=== PATIENT | female | born 1960 | race Asian ===

== ENCOUNTER 2023-02-16 22:17 | Emergency (ER) | payer MEDICAID ==
[~2023-02-16] VITALS: Ht 142.2 cm; Wt 63.5 kg
[2023-02-16 22:26] VITALS: BP_SYST 114; PULSE 74; RESP 20; TEMP 97.2; O2SAT 96
--- NOTE | 2023-02-16 22:26 | NUR ---
Patient to ER bed 07 to gown for evaluation. Side rails up. Report given to KAYLEY CRYSTAL.
--- NOTE | 2023-02-16 22:40 | NUR ---
Pt bib from home. c/o irritated R eye. Pt states to have been putting cover on car when she felt something in her eye. Pt states she used eye drops to irrigate eye but found no relief. Pt states to have been rubbing eye continously and does not know if she further irriated eye. Pt states she can see with R eye but has discomfort. Pt pain 8/10. Noted R eye tears, redness. No drainage noted. Pt AAOX4. VSS. Skin dry and intact. Pt speaking full complete sentences. Pt in bed with side rails up. at bedside.
--- NOTE | 2023-02-16 23:29 | NUR ---
MD ordered visual acuity test. pt denied stating she cannot keep her eye open and it hurts to open her eye. Pt educated on importance of visual acuity test. Pt denied test. MD and charge notifed
[2023-02-16] MEDS ORDERED: FLUORESCEIN SODIUM 1 MG OPHTHALMIC STRIP OP ONE (23:45)
[2023-02-16] MEDS ORDERED: PROPARACAINE (OPTHANINE 0.5%) 15 ML DROPS OP ONE (23:45)
[2023-02-16] MEDS ORDERED: BALANCED SALT IRRIG SOLN 15 ML IO ONE (23:45)
--- NOTE | 2023-02-17 00:01 | NUR ---
Patient transported to radiology via wheelchair, accompanied by ech.
[2023-02-17] MEDS ORDERED: OLOP5DRO24 LEFT EYE (00:30)
[2023-02-17] MEDS ORDERED: OFLO5DRO6 LEFT EYE (00:30)
[2023-02-17 00:45] VITALS: BP_SYST 116; PULSE 62; RESP 14; TEMP 98.3; O2SAT 100
--- NOTE | 2023-02-17 00:45 | NUR ---
Patient given written and verbal discharge instructions and verbalizes understanding. ER MD discussed with patient the results and treatment provided. Patient in stable condition. ID arm band removed. Rx of OFLOXACIN AND PATADAY given. Patient educated on pain management and to follow up with PMD. Pain Scale 0/10 Opportunity for questions provided and answered. Medication side effect fact sheet provided.
== END 2023-02-17 00:45 | disposition home or self-care (01) ==
LOC: SED 22:17
DX: S05.01XA Injury of conjunctiva and corneal abrasion without foreign body, right eye, initial encounter (principal); Z79.899 Other long term (current) drug therapy; W45.8XXA Other foreign body or object entering through skin, initial encounter; Y93.89 Activity, other specified; Y92.89 Other specified places as the place of occurrence of the external cause; Y99.8 Other external cause status
CPT/HCPCS: 70030; 99283